=== PATIENT | male | born 1965 | race Two or more races ===

== ENCOUNTER 2019-06-25 15:47 | Inpatient (IN) | payer OTHER ==
[2019-06-25 16:58] VITALS: BMI 24.3
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
[2019-06-25] MEDS ORDERED: MENTHOL/PHENOL 1 EACH UD MM PRN (17:44)
[2019-06-25] MEDS ORDERED: MAGNESIUM HYDROX 2400MG/30ML ORAL SUSPENSION 30 ML CUP PO PRN (17:44)
[2019-06-25] MEDS ORDERED: guaiFENesin 200 MG/10 ML 10 ML UNIT-DOSE CUPS PO PRN (17:44)
[2019-06-25] MEDS ORDERED: ACETAMINOPHEN 325 MG TABLET (FP) PO PRN (17:44)
[2019-06-25] MEDS ORDERED: MAGNESIUM CITRATE 300 ML BOTTLE PO PRN (17:44)
[2019-06-25] MEDS ORDERED: IBUPROFEN 400 MG TABLET (FP) PO PRN (17:44)
[2019-06-25] MEDS ORDERED: LOPERAMIDE HCL 2 MG CAPSULE PO PRN (17:44)
[2019-06-25] MEDS ORDERED: P-EPHED 60MG/TRIPROLIDI 2.5MG TABLET PO PRN (17:44)
[2019-06-25] MEDS ORDERED: MAG HYDROX/AL HYDROX/SIMETH 30 ML UNIT-DOSE CUP PO PRN (17:44)
[2019-06-25] MEDS ORDERED: hydrOXYzine PAMOATE 50 MG CAPSULE (FP) PO PRN (17:44)
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
[2019-06-25] MEDS: metFORMIN HCL 500 MG TABLET (FP) PO SCH (19:08)
[2019-06-25] MEDS: THIAMINE HCL 100 MG TABLET (FP) PO SCH (21:20)
[2019-06-26] MEDS ORDERED: METHADONE HCL 10 MG TABLET PO SCH (07:00)
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
[2019-06-26] MEDS ORDERED: METHADONE HCL 5 MG TABLET ONE (07:11)
[2019-06-26] MEDS ORDERED: METHADONE HCL 10 MG TABLET ONE (07:12)
[2019-06-26] MEDS: METHADONE PO SCH (07:15)
[2019-06-26] MEDS: metFORMIN HCL 500 MG TABLET (FP) PO SCH ×2 (07:17→17:40)
--- NOTE | 2019-06-26 10:15 | PN ---
[facility] Progress Note Note: Pt is a new pt admitted to rehab from [facility] on 06.25.19 for RACQUEL-heroin,xanax and cocaine dependence and on Cameron Plasencia-MMTP with Methadone 25 mg po daily. Received last dose today on the unit after verification by nurse. Pt stated was discharged from [facility] yesterday for psych("i got paranoa, people follow me") and was referred here to rehab. Pt reports he was at [facility] for seven days. Pt reports was recently diagnosed with DM at [facility] and referred to primary care. Pt is alert o x 3. OOb ambulating with steady gait. Psych consult for hx of Schizo and Bipolar disorder. Pt reports he has a psych/medical providers at [place], [place] for primary care. Vital Signs - 24 hr 06/25/19 06/25/19 06/26/19 16:45 18:40 00:30 Temperature 97.8 F 98.0 F Pulse Rate 95 H 88 Respiratory 18 18 18 Rate Blood Pressure 115/82 111/75 06/26/19 06/26/19 03:30 07:01 Temperature 97.5 F L Pulse Rate 113 H Respiratory 18 18 Rate Blood Pressure 108/78 A/P New Pt D/w pt will monitor BGM while in rehab and intervene if needed. Pt will follow up with primary care providers at [facility] after discharge.
[2019-06-26] MEDS: PRENATAL VITAMINS W/ FOLIC ACID TABLET (FP) PO SCH (10:47)
[2019-06-26] MEDS: BENZTROPINE MESYLATE 0.5 MG PO SCH ×2 (10:47→21:37)
[2019-06-26] MEDS: MINERAL OIL/PETROLAT/WATER TOPICAL CREAM 113 GM JAR TP PRN (17:58)
[2019-06-26] MEDS: MELATONIN 5 MG TABLETS PO PRN (21:37)
[2019-06-26] MEDS: THIAMINE HCL 100 MG TABLET (FP) PO SCH (21:37)
[2019-06-27] MEDS ORDERED: METHADONE HCL 5 MG TABLET ONE (05:38)
[2019-06-27] MEDS ORDERED: METHADONE HCL 10 MG TABLET ONE (05:39)
[2019-06-27] MEDS: METHADONE PO SCH (05:58)
[2019-06-27] MEDS: PALIPERIDONE 9 MG PO SCH (06:01)
[2019-06-27] MEDS: metFORMIN HCL 500 MG TABLET (FP) PO SCH ×2 (07:07→16:55)
[2019-06-27] MEDS: PRENATAL VITAMINS W/ FOLIC ACID TABLET (FP) PO SCH (10:38)
[2019-06-27] MEDS: BENZTROPINE MESYLATE 0.5 MG PO SCH ×2 (10:38→21:21)
[2019-06-27 11:57] LABS: HEMATOCRIT 43.3 % (35.4-49); HEMOGLOBIN 14.3 GM/dL (11.7-16.9); MCH 28.4 pg (25.7-33.7); MEAN PLT VOLUME 8.9 fl (7.5-11.1); PLATELET COUNT 259 K/MM3 (134-434); RBC 5.03 M/mm3 (4.00-5.60); RDW 15.1 % (11.9-15.9); WHITE BLOOD COUNT 10.2 K/mm3 (4.0-10.0)
[2019-06-27 12:13] LABS: BILIRUBIN,TOTAL 0.4 mg/dL (0.2-1); BLOOD UREA NITROGEN 8.4 mg/dL (7-18); CALCIUM 9.3 mg/dL (8.5-10.1); CREATININE 0.7 mg/dL (0.55-1.3); POTASSIUM 4.1 mmol/L (3.5-5.1); TOT PROT 7.8 g/dl (6.4-8.2)
[2019-06-27 14:44] LABS: URINE APPEARANCE CLEAR; URINE BILIRUBIN NEGATIVE (NEGATIVE); URINE COLOR YELLOW; URINE GLUCOSE (UA) NEGATIVE (NEGATIVE); URINE KETONE NEGATIVE (NEGATIVE); URINE LEUK ESTERASE NEGATIVE (NEGATIVE); URINE NITRITE NEGATIVE (NEGATIVE); URINE PROTEIN NEGATIVE (NEGATIVE); URINE UROBILINOGEN 0.2 mg/dL (0.2-1.0)
[2019-06-27] MEDS: THIAMINE HCL 100 MG TABLET (FP) PO SCH (21:21)
[2019-06-27] MEDS: MINERAL OIL/PETROLAT/WATER TOPICAL CREAM 113 GM JAR TP PRN (22:40)
[2019-06-28] MEDS ORDERED: METHADONE HCL 5 MG TABLET ONE (05:49)
[2019-06-28] MEDS ORDERED: METHADONE HCL 10 MG TABLET ONE (05:50)
[2019-06-28] MEDS: PALIPERIDONE 9 MG PO SCH (06:30)
[2019-06-28] MEDS: METHADONE PO SCH (06:30)
[2019-06-28] MEDS: metFORMIN HCL 500 MG TABLET (FP) PO SCH ×2 (07:46→16:33)
[2019-06-28] MEDS: BENZTROPINE MESYLATE 0.5 MG PO SCH ×2 (10:42→21:17)
[2019-06-28] MEDS: PRENATAL VITAMINS W/ FOLIC ACID TABLET (FP) PO SCH (10:42)
[2019-06-28] MEDS: NICOTINE POLACRILEX 2 MG GUM BC PRN (16:35)
[2019-06-28] MEDS: THIAMINE HCL 100 MG TABLET (FP) PO SCH (21:17)
[2019-06-29] MEDS ORDERED: METHADONE HCL 5 MG TABLET ONE (05:53)
[2019-06-29] MEDS ORDERED: METHADONE HCL 10 MG TABLET ONE (05:54)
[2019-06-29] MEDS: METHADONE PO SCH (06:05)
[2019-06-29] MEDS: PALIPERIDONE 9 MG PO SCH (06:06)
[2019-06-29] MEDS: metFORMIN HCL 500 MG TABLET (FP) PO SCH ×2 (07:30→17:10)
[2019-06-29] MEDS: BENZTROPINE MESYLATE 0.5 MG PO SCH ×2 (10:29→21:38)
[2019-06-29] MEDS: PRENATAL VITAMINS W/ FOLIC ACID TABLET (FP) PO SCH (10:29)
[2019-06-29] MEDS: NICOTINE POLACRILEX 2 MG GUM BC PRN (10:34)
[2019-06-29] MEDS: THIAMINE HCL 100 MG TABLET (FP) PO SCH (21:38)
[2019-06-29] MEDS: MELATONIN 5 MG TABLETS PO PRN (21:38)
[2019-06-30] MEDS ORDERED: METHADONE HCL 5 MG TABLET ONE (06:16)
[2019-06-30] MEDS: METHADONE PO SCH (06:17)
[2019-06-30] MEDS ORDERED: METHADONE HCL 10 MG TABLET ONE (06:17)
[2019-06-30] MEDS: PALIPERIDONE 9 MG PO SCH (06:18)
[2019-06-30] MEDS: metFORMIN HCL 500 MG TABLET (FP) PO SCH ×2 (07:03→17:11)
[2019-06-30] MEDS: PRENATAL VITAMINS W/ FOLIC ACID TABLET (FP) PO SCH (10:15)
[2019-06-30] MEDS: BENZTROPINE MESYLATE 0.5 MG PO SCH ×2 (10:17→21:07)
[2019-06-30] MEDS: THIAMINE HCL 100 MG TABLET (FP) PO SCH (21:06)
[2019-06-30] MEDS: MELATONIN 5 MG TABLETS PO PRN (21:07)
[2019-07-01] MEDS ORDERED: METHADONE HCL 10 MG TABLET ONE (06:17)
[2019-07-01] MEDS ORDERED: METHADONE HCL 5 MG TABLET ONE (06:17)
[2019-07-01] MEDS: METHADONE PO SCH (06:20)
[2019-07-01] MEDS: PALIPERIDONE 9 MG PO SCH (06:21)
[2019-07-01] MEDS: metFORMIN HCL 500 MG TABLET (FP) PO SCH ×2 (07:35→17:04)
[2019-07-01] MEDS: PRENATAL VITAMINS W/ FOLIC ACID TABLET (FP) PO SCH (10:40)
[2019-07-01] MEDS: BENZTROPINE MESYLATE 0.5 MG PO SCH ×2 (10:40→21:13)
[2019-07-01] MEDS: MELATONIN 5 MG TABLETS PO PRN (21:13)
[2019-07-01] MEDS: THIAMINE HCL 100 MG TABLET (FP) PO SCH (21:13)
[2019-07-02] MEDS ORDERED: METHADONE HCL 5 MG TABLET ONE (05:42)
[2019-07-02] MEDS ORDERED: METHADONE HCL 10 MG TABLET ONE (05:42)
[2019-07-02] MEDS: METHADONE PO SCH (06:05)
[2019-07-02] MEDS: metFORMIN HCL 500 MG TABLET (FP) PO SCH ×2 (07:09→17:09)
[2019-07-02] MEDS: PALIPERIDONE 9 MG PO SCH (07:10)
[2019-07-02] MEDS: PRENATAL VITAMINS W/ FOLIC ACID TABLET (FP) PO SCH (11:00)
[2019-07-02] MEDS: BENZTROPINE MESYLATE 0.5 MG PO SCH ×2 (11:00→22:00)
[2019-07-02] MEDS: THIAMINE HCL 100 MG TABLET (FP) PO SCH (22:00)
[2019-07-03] MEDS ORDERED: METHADONE HCL 10 MG TABLET PO SCH (06:00)
[2019-07-03] MEDS ORDERED: METHADONE HCL 5 MG TABLET ONE (06:28)
[2019-07-03] MEDS ORDERED: METHADONE HCL 10 MG TABLET ONE (06:29)
[2019-07-03] MEDS: METHADONE 20 MG, METHADONE 5 MG PO SCH (06:30)
[2019-07-03] MEDS: PALIPERIDONE 9 MG PO SCH (06:30)
[2019-07-03] MEDS: metFORMIN HCL 500 MG TABLET (FP) PO SCH ×2 (07:42→17:15)
[2019-07-03] MEDS: PRENATAL VITAMINS W/ FOLIC ACID TABLET (FP) PO SCH (11:37)
[2019-07-03] MEDS: BENZTROPINE MESYLATE 0.5 MG PO SCH ×2 (11:37→21:56)
--- NOTE | 2019-07-03 12:24 | DS ---
[facility] Rehab Discharge Summary - [facility] Rehab Discharge Summary Admission Date: 06/25/19 Discharge Date: 07/04/19 - History Present History: Alcohol dependence, Cocaine dependence, MMTP Additional Comments: Pt is a 54 y/o male admitted to rehab and scheduled for discharge tomorrow 07/04. Pt has been referred to [facility] and [place], [place] for CD aftercare and primary care, respectively. Pertinent Past History: Type 2 DM Hep C-completed treatment 4 months ago per H/P Schizophrenia - Discharge Physical Exam Vital Signs: Vital Signs Temperature 97.2 F L 07/03/19 07:26 Pulse Rate 108 H 07/03/19 07:26 Respiratory Rate 18 07/03/19 07:26 Blood Pressure 104/69 07/03/19 07:26 O2 Sat by Pulse Oximetry (%) alert o x 3 nad oob ambulating with steady gait cardiac:s1 s2,rrr lungs:cta,dequan. abdomen:soft,flat,+bs,nt extremities/skin:no edema,Active ROM/ full weight bearing/skin intact;tatoos on lower legs. Pertinent Admission Physical Exam Findings: Laboratory Tests 06/25/19 06/26/19 06/26/19 19:06 06:02 10:30 WBC RBC Hgb Hct MCV MCH MCHC RDW Plt Count MPV Sodium Potassium Chloride Carbon Dioxide Anion Gap BUN Creatinine Est GFR (CKD-EPI)AfAm Est GFR (CKD-EPI)NonAf POC Glucometer 147 173 Random Glucose Calcium Total Bilirubin AST ALT Alkaline Phosphatase Total Protein Albumin Urine Color Yellow Urine Appearance Clear Urine pH 5.0 Ur Specific Wiggins 1.017 Urine Protein Negative Urine Glucose (UA) Negative Urine Ketones Negative Urine Blood Negative Urine Nitrite Negative Urine Bilirubin Negative Urine Urobilinogen 0.2 Ur Leukocyte Esterase Negative RPR Titer 06/26/19 06/27/19 06/27/19 16:13 05:58 08:00 WBC 10.2 H RBC 5.03 Hgb 14.3 Hct 43.3 MCV 86.0 MCH 28.4 MCHC 33.0 RDW 15.1 D Plt Count 259 D MPV 8.9 Sodium Potassium Chloride Carbon Dioxide Anion Gap BUN Creatinine Est GFR (CKD-EPI)AfAm Est GFR (CKD-EPI)NonAf POC Glucometer 93 107 Random Glucose Calcium Total Bilirubin AST ALT Alkaline Phosphatase Total Protein Albumin Urine Color Urine Appearance Urine pH Ur Specific Wiggins Urine Protein Urine Glucose (UA) Urine Ketones Urine Blood Urine Nitrite Urine Bilirubin Urine Urobilinogen Ur Leukocyte Esterase RPR Titer 06/27/19 06/27/19 06/27/19 08:00 08:00 16:54 WBC RBC Hgb Hct MCV MCH MCHC RDW Plt Count MPV Sodium 136 Potassium 4.1 Chloride 103 Carbon Dioxide 25 Anion Gap 8 BUN 8.4 Creatinine 0.7 Est GFR (CKD-EPI)AfAm 125.75 Est GFR (CKD-EPI)NonAf 108.50 POC Glucometer 141 Random Glucose 123 H Calcium 9.3 Total Bilirubin 0.4 AST 14 L ALT 17 Alkaline Phosphatase 79 Total Protein 7.8 Albumin 4.0 Urine Color Urine Appearance Urine pH Ur Specific Wiggins Urine Protein Urine Glucose (UA) Urine Ketones Urine Blood Urine Nitrite Urine Bilirubin Urine Urobilinogen Ur Leukocyte Esterase RPR Titer Nonreactive 06/28/19 06/28/19 06/29/19 06:28 16:32 06:03 WBC RBC Hgb Hct MCV MCH MCHC RDW Plt Count MPV Sodium Potassium Chloride Carbon Dioxide Anion Gap BUN Creatinine Est GFR (CKD-EPI)AfAm Est GFR (CKD-EPI)NonAf POC Glucometer 105 104 118 Random Glucose Calcium Total Bilirubin AST ALT Alkaline Phosphatase Total Protein Albumin Urine Color Urine Appearance Urine pH Ur Specific Wiggins Urine Protein Urine Glucose (UA) Urine Ketones Urine Blood Urine Nitrite Urine Bilirubin Urine Urobilinogen Ur Leukocyte Esterase RPR Titer 06/29/19 06/30/19 06/30/19 16:22 06:13 16:23 WBC RBC Hgb Hct MCV MCH MCHC RDW Plt Count MPV Sodium Potassium Chloride Carbon Dioxide Anion Gap BUN Creatinine Est GFR (CKD-EPI)AfAm Est GFR (CKD-EPI)NonAf POC Glucometer 125 103 133 Random Glucose Calcium Total Bilirubin AST ALT Alkaline Phosphatase Total Protein Albumin Urine Color Urine Appearance Urine pH Ur Specific Wiggins Urine Protein Urine Glucose (UA) Urine Ketones Urine Blood Urine Nitrite Urine Bilirubin Urine Urobilinogen Ur Leukocyte Esterase RPR Titer 07/01/19 07/01/19 07/02/19 06:19 16:36 06:02 WBC RBC Hgb Hct MCV MCH MCHC RDW Plt Count MPV Sodium Potassium Chloride Carbon Dioxide Anion Gap BUN Creatinine Est GFR (CKD-EPI)AfAm Est GFR (CKD-EPI)NonAf POC Glucometer 98 101 108 Random Glucose Calcium Total Bilirubin AST ALT Alkaline Phosphatase Total Protein Albumin Urine Color Urine Appearance Urine pH Ur Specific Wiggins Urine Protein Urine Glucose (UA) Urine Ketones Urine Blood Urine Nitrite Urine Bilirubin Urine Urobilinogen Ur Leukocyte Esterase RPR Titer 07/02/19 07/03/19 07/04/19 17:10 06:26 06:24 WBC RBC Hgb Hct MCV MCH MCHC RDW Plt Count MPV Sodium Potassium Chloride Carbon Dioxide Anion Gap BUN Creatinine Est GFR (CKD-EPI)AfAm Est GFR (CKD-EPI)NonAf POC Glucometer 98 84 94 Random Glucose Calcium Total Bilirubin AST ALT Alkaline Phosphatase Total Protein Albumin Urine Color Urine Appearance Urine pH Ur Specific Wiggins Urine Protein Urine Glucose (UA) Urine Ketones Urine Blood Urine Nitrite Urine Bilirubin Urine Urobilinogen Ur Leukocyte Esterase RPR Titer - Treatment Discharge Condition: Discharge condition good Hospital Course: Rehabilitated safely and responded well CD aftercare referral accepted - Medication Discharge Medications: Ambulatory Orders Benztropine Mesylate [Cogentin -] 0.5 mg PO BID #60 tablet 07/03/19 Metformin HCl [Glucophage] 500 mg PO BID #60 tablet 07/03/19 Paliperidone [Invega] 9 mg PO DAILY #30 tab.[id number] 07/03/19 - Medication-Assisted Treatment (MAT) Medication-Assisted Treatment (MAT): No - Discharge Instructions Diet, activity, other medical instructions: Diet:NCS Activity: oob ambulating with steady gait Other medical instructions:follow up with primary care provider at [facility] within 1 week after discharge. 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 insulin use: without half-way use (2) Nicotine dependence Current Visit: Yes Status: Chronic Qualifiers: Nicotine product type: cigarettes Substance use status: uncomplicated Qualified Code(s): F17.210 - Nicotine dependence, cigarettes, uncomplicated (3) Opioid dependence on agonist therapy Current Visit: Yes Status: Chronic (4) Alcohol dependence Current Visit: Yes Status: Chronic Qualifiers: Substance use status: uncomplicated Qualified Code(s): F10.20 - Alcohol dependence, uncomplicated (5) Cocaine dependence Current Visit: Yes Status: Chronic (6) Hx of hepatitis C Current Visit: Yes Status: Resolved - Follow-up Referral Minutes to complete discharge: 20 - AMA Did Patient Leave Against Medical Advice: No Additional Comments: Rx for metformin 500 mg po bid electronically sent to [facility] 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
--- NOTE | 2019-07-03 13:27 | PN ---
[facility] Progress Note Note: Patient is scheduled for discharge tomorrow. Scripts for 30 days supply of medications(Invega 9 mg/day, Cogentin 0.5 mg/bid) will be electronically transmitted to [facility] at [address] [place] [address]
[2019-07-03] MEDS: THIAMINE HCL 100 MG TABLET (FP) PO SCH (21:57)
[2019-07-04] MEDS ORDERED: METHADONE HCL 5 MG TABLET ONE (06:22)
[2019-07-04] MEDS ORDERED: METHADONE HCL 10 MG TABLET ONE (06:22)
[2019-07-04] MEDS: PALIPERIDONE 9 MG PO SCH (06:26)
[2019-07-04] MEDS: METHADONE 20 MG, METHADONE 5 MG PO SCH (06:26)
[2019-07-04 07:15] VITALS: BP 108/75; PULSE 75; TEMP 97.4
--- NOTE | 2019-07-04 09:17 | PN ---
S Progress Note Note: Pt seen this morning prior to discharge. Pt states he is fine. Has outpt care set up. Will be going to nursing home. Pt alert and oriented, ambulatory PE- refused PE- walked out of the room f/u as scheduled
[2019-07-04] MEDS: PRENATAL VITAMINS W/ FOLIC ACID TABLET (FP) PO SCH (10:04)
[2019-07-04] MEDS: metFORMIN HCL 500 MG TABLET (FP) PO SCH (10:05)
[2019-07-04] MEDS: BENZTROPINE MESYLATE 0.5 MG PO SCH (10:05)
== END 2019-07-04 10:10 | disposition other institution (70) | DRG 772 ==
LOC: YASAS 15:47 → Y5N 17:52
PROVIDERS: ADMIT Neuromusculoskeletal Medicine & OMM; ATTEND Neuromusculoskeletal Medicine & OMM
PROC: HZ42ZZZ Group Counseling for Substance Abuse Treatment, Cognitive-Behavioral (ICD-10-PCS; principal; 2019-06-25)
DX: F10.20 Alcohol dependence, uncomplicated (principal); F11.20 Opioid dependence, uncomplicated; F13.20 Sedative, hypnotic or anxiolytic dependence, uncomplicated; F14.20 Cocaine dependence, uncomplicated; F17.210 Nicotine dependence, cigarettes, uncomplicated; F19.282 Other psychoactive substance dependence with psychoactive substance-induced sleep disorder; F19.24 Other psychoactive substance dependence with psychoactive substance-induced mood disorder; F25.9 Schizoaffective disorder, unspecified; F31.9 Bipolar disorder, unspecified; E11.9 Type 2 diabetes mellitus without complications; Z79.84 Long term (current) use of oral hypoglycemic drugs; Z86.19 Personal history of other infectious and parasitic diseases; Z87.828 Personal history of other (healed) physical injury and trauma; Z88.8 Allergy status to other drugs, medicaments and biological substances; Z91.013 Allergy to seafood
CPT/HCPCS: 36415; 80053; 81003; 82962; 85027; 86593

== ENCOUNTER 2019-08-22 11:16 | Inpatient (IN) | payer OTHER ==
[2019-08-22 13:12] VITALS: BMI 25.0
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
[2019-08-22] MEDS ORDERED: MAG HYDROX/AL HYDROX/SIMETH 30 ML UNIT-DOSE CUP PO PRN (16:37)
[2019-08-22] MEDS ORDERED: MAGNESIUM HYDROX 2400MG/30ML ORAL SUSPENSION 30 ML CUP PO PRN (16:37)
[2019-08-22] MEDS ORDERED: IBUPROFEN 400 MG TABLET (FP) PO PRN (16:37)
[2019-08-22] MEDS ORDERED: ACETAMINOPHEN 325 MG TABLET (FP) PO PRN ×2 (16:37)
[2019-08-22] MEDS ORDERED: MENTHOL/PHENOL 1 EACH UD MM PRN (16:37)
[2019-08-22] MEDS ORDERED: BISMUTH SUBSALICYLATE 524 MG/30 ML UD PO PRN (16:37)
[2019-08-22] MEDS ORDERED: MAGNESIUM CITRATE 300 ML BOTTLE PO PRN (16:37)
[2019-08-22] MEDS ORDERED: chlordiazePOXIDE HCL 10 MG CAPSULE PO PRN (16:41)
[2019-08-22] MEDS ORDERED: chlordiazePOXIDE HCL 25 MG CAPSULE PO ONE (17:45)
[2019-08-22] MEDS: chlordiazePOXIDE HCL 25 MG CAPSULE PO SCH (21:10)
[2019-08-22] MEDS: THIAMINE HCL 100 MG TABLET (FP) PO SCH (21:10)
[2019-08-23] MEDS: hydrOXYzine PAMOATE 25 MG CAPSULE (FP) PO PRN ×3 (01:32→17:04)
[2019-08-23] MEDS: MELATONIN 5 MG TABLETS PO PRN (01:32)
[2019-08-23] MEDS: chlordiazePOXIDE HCL 25 MG CAPSULE PO SCH ×3 (05:37→21:28)
[2019-08-23] MEDS: INSULIN SLIDING SCALE (NOVOLOG) 1 VIAL SQ SCH ×2 (07:26→17:04)
[2019-08-23] MEDS ORDERED: METHADONE HCL 10 MG TABLET PO ONE (08:42)
[2019-08-23] MEDS ORDERED: METHADONE 20 MG, METHADONE 5 MG PO ONE (08:50)
[2019-08-23] MEDS ORDERED: METHADONE HCL 10 MG TABLET ONE ×3 (09:04→09:26)
[2019-08-23] MEDS ORDERED: METHADONE HCL 5 MG TABLET ONE (09:26)
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
[2019-08-23] MEDS: PRENATAL VITAMINS W/ FOLIC ACID TABLET (FP) PO SCH (10:13)
--- NOTE | 2019-08-23 11:25 | PN ---
S CIWA - CIWA Score Nausea/Vomitin-No Nausea/No Vomiting Muscle Tremors: 3 Anxiety: 2 Agitation: 3 Paroxysmal Sweats: 2 Orientation: 0-Oriented Tacttile Disturbances: 0-None Auditory Disturbances: 0-None Visual Disturbances: 0-None Headache: 0-None Present CIWA-Ar Total Score: 10 BHS Progress Note (SOAP) Subjective: sweats shakes body aches interrupted sleep restless Objective: 08/23/19 11:24 Vital Signs Temperature 97.7 F 08/23/19 07:40 Pulse Rate 70 08/23/19 07:40 Respiratory Rate 18 08/23/19 07:40 Blood Pressure 129/77 08/23/19 07:40 O2 Sat by Pulse Oximetry (%) Laboratory Tests 08/23/19 05:36 POC Glucometer 131 aaox3 ambulating no acute distress Assessment: 08/23/19 11:25 withdrawals Plan: continue detox increase fluids
[2019-08-23 11:35] LABS: HEMOGLOBIN 14.6 GM/dL (11.7-16.9); MCHC 33.3 g/dl (32.0-35.9); MEAN CELL VOLUME 87.2 fl (80-96); PLATELET COUNT 247 K/MM3 (134-434); RBC 5.04 M/mm3 (4.00-5.60); RDW 15.1 % (11.9-15.9); WHITE BLOOD COUNT 13.2 K/mm3 (4.0-10.0)
[2019-08-23 11:39] LABS: ALBUMIN 3.9 g/dl (3.4-5.0); BILIRUBIN,TOTAL 0.7 mg/dL (0.2-1); CALCIUM 9.2 mg/dL (8.5-10.1); CREATININE 0.9 mg/dL (0.55-1.3); POTASSIUM 3.7 mmol/L (3.5-5.1); TOT PROT 7.4 g/dl (6.4-8.2)
[2019-08-23] MEDS: THIAMINE HCL 100 MG TABLET (FP) PO SCH (21:28)
[2019-08-23] MEDS: QUEtiapine FUMARATE 100 MG TABLET (FP) PO SCH (21:28)
[2019-08-24] MEDS: hydrOXYzine PAMOATE 25 MG CAPSULE (FP) PO PRN (01:00)
[2019-08-24] MEDS ORDERED: METHADONE HCL 10 MG TABLET ONE ×3 (04:04→05:37)
[2019-08-24] MEDS ORDERED: METHADONE HCL 5 MG TABLET ONE (05:37)
[2019-08-24] MEDS: METHADONE 20 MG, METHADONE 5 MG PO SCH (05:45)
[2019-08-24] MEDS: chlordiazePOXIDE 5 MG CAPSULE PO SCH ×3 (05:45→21:35)
[2019-08-24] MEDS ORDERED: METHADONE HCL 40 MG DISPERSABLE TABLET PO SCH (06:00)
[2019-08-24] MEDS: INSULIN SLIDING SCALE (NOVOLOG) 1 VIAL SQ SCH ×2 (08:12→17:10)
[2019-08-24] MEDS: PRENATAL VITAMINS W/ FOLIC ACID TABLET (FP) PO SCH (09:36)
--- NOTE | 2019-08-24 12:00 | PN ---
S CIWA - CIWA Score Nausea/Vomitin-No Nausea/No Vomiting Muscle Tremors: 2 Anxiety: 2 Agitation: 2 Paroxysmal Sweats: 1-Minimal Palms Moist Orientation: 0-Oriented Tacttile Disturbances: 0-None Auditory Disturbances: 0-None Visual Disturbances: 0-None Headache: 0-None Present CIWA-Ar Total Score: 7 BHS Progress Note (SOAP) Subjective: feeling better Objective: 08/24/19 11:59 Vital Signs Temperature 97.3 F L 08/24/19 09:36 Pulse Rate 84 08/24/19 09:36 Respiratory Rate 16 08/24/19 09:36 Blood Pressure 126/81 08/24/19 09:36 O2 Sat by Pulse Oximetry (%) aaox3 ambulating no acute distress Assessment: 08/24/19 12:00 withdrawal sx Plan: continue detox d/c in am
[2019-08-24] MEDS: MELATONIN 5 MG TABLETS PO PRN (21:36)
[2019-08-24] MEDS: THIAMINE HCL 100 MG TABLET (FP) PO SCH (21:36)
[2019-08-24] MEDS: QUEtiapine FUMARATE 100 MG TABLET (FP) PO SCH (21:38)
[2019-08-25] MEDS ORDERED: chlordiazePOXIDE HCL 10 MG CAPSULE PO PRN
[2019-08-25] MEDS ORDERED: METHADONE HCL 5 MG TABLET ONE (04:14)
[2019-08-25] MEDS ORDERED: METHADONE HCL 10 MG TABLET ONE (04:14)
[2019-08-25] MEDS: METHADONE 20 MG, METHADONE 5 MG PO SCH (05:57)
[2019-08-25] MEDS: chlordiazePOXIDE HCL 10 MG CAPSULE PO SCH ×3 (05:57→22:26)
[2019-08-25] MEDS: INSULIN SLIDING SCALE (NOVOLOG) 1 VIAL SQ SCH ×2 (08:10→17:04)
[2019-08-25] MEDS: PRENATAL VITAMINS W/ FOLIC ACID TABLET (FP) PO SCH (10:16)
--- NOTE | 2019-08-25 16:24 | PN ---
S CIWA - CIWA Score Nausea/Vomitin-No Nausea/No Vomiting Muscle Tremors: None Anxiety: 3 Agitation: 2 Paroxysmal Sweats: No Perspiration Orientation: 2-Disoriented Date<2 days Tacttile Disturbances: 0-None Auditory Disturbances: 0-None Visual Disturbances: 2-Mild Sensitivity Headache: 0-None Present CIWA-Ar Total Score: 9 BHS Progress Note (SOAP) Subjective: Anxious, Restless. Objective: PATIENT A & O X 2 (UNCERTAIN ABOUT CURRENT DAY/ DATE). PATIENT OBSERVED AMBULATING ON DETOX UNIT UNASSISTED. IN NO ACUTE DISTRESS. 08/25/19 16:22 Vital Signs Temperature 97.7 F 08/25/19 15:30 Pulse Rate 67 08/25/19 15:30 Respiratory Rate 18 08/25/19 15:30 Blood Pressure 119/73 08/25/19 15:30 O2 Sat by Pulse Oximetry (%) Laboratory Tests 08/23/19 08/23/19 08/23/19 05:36 08:20 08:20 WBC 13.2 H RBC 5.04 Hgb 14.6 Hct 44.0 MCV 87.2 MCH 29.0 MCHC 33.3 RDW 15.1 Plt Count 247 MPV 9.0 Sodium 137 Potassium 3.7 Chloride 103 Carbon Dioxide 29 Anion Gap 5 L BUN 16.0 Creatinine 0.9 Est GFR (CKD-EPI)AfAm 113.41 Est GFR (CKD-EPI)NonAf 97.85 POC Glucometer 131 Random Glucose 131 H Calcium 9.2 Total Bilirubin 0.7 AST 13 L ALT 20 Alkaline Phosphatase 79 Total Protein 7.4 Albumin 3.9 08/23/19 08/24/19 08/24/19 16:51 05:44 16:31 WBC RBC Hgb Hct MCV MCH MCHC RDW Plt Count MPV Sodium Potassium Chloride Carbon Dioxide Anion Gap BUN Creatinine Est GFR (CKD-EPI)AfAm Est GFR (CKD-EPI)NonAf POC Glucometer 115 106 127 Random Glucose Calcium Total Bilirubin AST ALT Alkaline Phosphatase Total Protein Albumin 08/25/19 05:58 WBC RBC Hgb Hct MCV MCH MCHC RDW Plt Count MPV Sodium Potassium Chloride Carbon Dioxide Anion Gap BUN Creatinine Est GFR (CKD-EPI)AfAm Est GFR (CKD-EPI)NonAf POC Glucometer 132 Random Glucose Calcium Total Bilirubin AST ALT Alkaline Phosphatase Total Protein Albumin LABS NOTED. ELEVATED WBC LEVEL NOTED. TRACK PICKERING PRESENT ON RIGHT ARM; HOWEVER, NO SWELLING , ERYTHEMA OR DISCHARGE NOTED AT AFFECTED SITES. PATIENT DENIES ANY UNUSUAL URINARY COMPLAINTS (BURNING, PAIN, FREQUENCY, URGENCY , HESITANCY, VISUALIZATION OF BLOOD IN URINE). PATIENT DENIES CHEST PAIN AND SOB. 08/25/19 16:24 Assessment: 08/25/19 16:23 WITHDRAWAL SYMPTOMS. Plan: CONTINUE DETOX. INCREASE DAILY ORAL WATER INTAKE. UA ORDERED TO R/O UTI.
[2019-08-25] MEDS: QUEtiapine FUMARATE 100 MG TABLET (FP) PO SCH (22:26)
[2019-08-25] MEDS: THIAMINE HCL 100 MG TABLET (FP) PO SCH (22:26)
[2019-08-26] MEDS ORDERED: chlordiazePOXIDE HCL 10 MG CAPSULE PO ONE (05:00)
[2019-08-26] MEDS ORDERED: METHADONE HCL 10 MG TABLET ONE (05:15)
[2019-08-26] MEDS ORDERED: METHADONE HCL 5 MG TABLET ONE (05:15)
[2019-08-26] MEDS: METHADONE 20 MG, METHADONE 5 MG PO SCH (05:43)
[2019-08-26] MEDS: INSULIN SLIDING SCALE (NOVOLOG) 1 VIAL SQ SCH ×2 (06:27→16:51)
--- NOTE | 2019-08-26 09:13 | DS ---
[facility] Detox Discharge Summary Admission Date: 08/22/19 Discharge Date: 08/26/19 - History Present History: Alcohol Dependence, Sedative Dependence, MMTP - Physical Exam Results Vital Signs: Vital Signs Temperature 97.2 F L 08/26/19 07:21 Pulse Rate 84 08/26/19 07:21 Respiratory Rate 18 08/26/19 07:21 Blood Pressure 115/75 08/26/19 07:21 O2 Sat by Pulse Oximetry (%) Pertinent Admission Physical Exam Findings: Vital Signs Temperature 97.2 F L 08/26/19 07:21 Pulse Rate 84 08/26/19 07:21 Respiratory Rate 18 08/26/19 07:21 Blood Pressure 115/75 08/26/19 07:21 O2 Sat by Pulse Oximetry (%) Laboratory Tests 08/23/19 08/23/19 08/23/19 05:36 08:20 08:20 WBC 13.2 H RBC 5.04 Hgb 14.6 Hct 44.0 MCV 87.2 MCH 29.0 MCHC 33.3 RDW 15.1 Plt Count 247 MPV 9.0 Sodium 137 Potassium 3.7 Chloride 103 Carbon Dioxide 29 Anion Gap 5 L BUN 16.0 Creatinine 0.9 Est GFR (CKD-EPI)AfAm 113.41 Est GFR (CKD-EPI)NonAf 97.85 POC Glucometer 131 Random Glucose 131 H Calcium 9.2 Total Bilirubin 0.7 AST 13 L ALT 20 Alkaline Phosphatase 79 Total Protein 7.4 Albumin 3.9 08/23/19 08/24/19 08/24/19 16:51 05:44 16:31 WBC RBC Hgb Hct MCV MCH MCHC RDW Plt Count MPV Sodium Potassium Chloride Carbon Dioxide Anion Gap BUN Creatinine Est GFR (CKD-EPI)AfAm Est GFR (CKD-EPI)NonAf POC Glucometer 115 106 127 Random Glucose Calcium Total Bilirubin AST ALT Alkaline Phosphatase Total Protein Albumin 08/25/19 08/25/19 08/26/19 05:58 16:22 06:15 WBC RBC Hgb Hct MCV MCH MCHC RDW Plt Count MPV Sodium Potassium Chloride Carbon Dioxide Anion Gap BUN Creatinine Est GFR (CKD-EPI)AfAm Est GFR (CKD-EPI)NonAf POC Glucometer 132 311 138 Random Glucose Calcium Total Bilirubin AST ALT Alkaline Phosphatase Total Protein Albumin aaox3 ambulating no acute distress - Treatment Hospital Course: Detox Protocol Followed, Detoxed Safely, Responded well, Discharged Condition Good, Rehab Referral Accepted Patient has Accepted a Rehab Referral to: referral provided - Medication Discharge Medications: Ambulatory Orders Quetiapine Fumarate [Seroquel -] 100 mg PO DAILY 08/22/19 - Diagnosis (1) Alcohol dependence with withdrawal, uncomplicated Current Visit: Yes Status: Acute (2) Nicotine dependence Current Visit: Yes Status: Chronic Qualifiers: Nicotine product type: cigarettes Substance use status: uncomplicated Qualified Code(s): F17.210 - Nicotine dependence, cigarettes, uncomplicated (3) Opioid dependence on agonist therapy Current Visit: Yes Status: Chronic (4) Sedative, hypnotic or anxiolytic dependence, uncomplicated Current Visit: Yes Status: Chronic (5) Cocaine abuse Current Visit: No Status: Acute (6) Opioid dependence with withdrawal Current Visit: Yes Status: Chronic (7) Sedative hypnotic or anxiolytic dependence Current Visit: No Status: Acute (8) Substance induced mood disorder Current Visit: No Status: Acute (9) Substance-induced sleep disorder Current Visit: No Status: Acute (10) Cocaine abuse Current Visit: No Status: Chronic (11) Cocaine dependence Current Visit: Yes Status: Chronic Qualifiers: Substance use status: uncomplicated Qualified Code(s): F14.20 - Cocaine dependence, uncomplicated (12) DMII (diabetes mellitus, type 2) Current Visit: No Status: Chronic Qualifiers: 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
--- NOTE | 2019-08-26 09:29 | PN ---
S Progress Note Note: pt will stay until tomorrow because tomorrow is a holiday (MLK) and his mmtp program is closed. pt will need to stay so he can be medicated and be d/c in am and be reinstated to his MMTP in am.
[2019-08-26] MEDS: PRENATAL VITAMINS W/ FOLIC ACID TABLET (FP) PO SCH (10:19)
[2019-08-26 11:52] LABS: EPI CELLS 0.9 /HPF (0-5/HPF); HYALINE CASTS 10 /lpf (0-8); URINE APPEARANCE CLEAR; URINE BACTERIA 50.2 /hpf (NEGATIVE); URINE BILIRUBIN NEGATIVE (NEGATIVE); URINE COLOR YELLOW; URINE GLUCOSE (UA) NEGATIVE (NEGATIVE); URINE KETONE NEGATIVE (NEGATIVE); URINE LEUK ESTERASE NEGATIVE (NEGATIVE); URINE NITRITE NEGATIVE (NEGATIVE); URINE PROTEIN 1+ (NEGATIVE); URINE RBC 7 /hpf (0-4); URINE UROBILINOGEN 0.2 mg/dL (0.2-1.0); URINE WBC 64 /hpf (0-5)
[2019-08-26] MEDS: QUEtiapine FUMARATE 100 MG TABLET (FP) PO SCH (22:47)
[2019-08-26] MEDS: THIAMINE HCL 100 MG TABLET (FP) PO SCH (22:47)
[2019-08-27] MEDS ORDERED: METHADONE HCL 10 MG TABLET ONE (04:02)
[2019-08-27] MEDS ORDERED: METHADONE HCL 5 MG TABLET ONE (04:04)
[2019-08-27] MEDS: METHADONE 20 MG, METHADONE 5 MG PO SCH (05:59)
[2019-08-27 06:56] VITALS: BP 103/72; PULSE 72; TEMP 97.9
[2019-08-27] MEDS: INSULIN SLIDING SCALE (NOVOLOG) 1 VIAL SQ SCH (08:27)
--- NOTE | 2019-08-27 09:13 | DS ---
[facility] Detox Discharge Summary Admission Date: 08/22/19 Discharge Date: 08/27/19 - History Present History: Alcohol Dependence, Cannabis Dependence, Cocaine Dependence, Opioid Dependence, MMTP - Physical Exam Results Vital Signs: Vital Signs Temperature 97.9 F 08/27/19 06:55 Pulse Rate 72 08/27/19 06:55 Respiratory Rate 18 08/27/19 06:55 Blood Pressure 103/72 08/27/19 06:55 O2 Sat by Pulse Oximetry (%) Pertinent Admission Physical Exam Findings: Vital Signs Temperature 97.9 F 08/27/19 06:55 Pulse Rate 72 08/27/19 06:55 Respiratory Rate 18 08/27/19 06:55 Blood Pressure 103/72 08/27/19 06:55 O2 Sat by Pulse Oximetry (%) Laboratory Tests 08/23/19 08/23/19 08/23/19 05:36 08:20 08:20 WBC 13.2 H RBC 5.04 Hgb 14.6 Hct 44.0 MCV 87.2 MCH 29.0 MCHC 33.3 RDW 15.1 Plt Count 247 MPV 9.0 Sodium 137 Potassium 3.7 Chloride 103 Carbon Dioxide 29 Anion Gap 5 L BUN 16.0 Creatinine 0.9 Est GFR (CKD-EPI)AfAm 113.41 Est GFR (CKD-EPI)NonAf 97.85 POC Glucometer 131 Random Glucose 131 H Calcium 9.2 Total Bilirubin 0.7 AST 13 L ALT 20 Alkaline Phosphatase 79 Total Protein 7.4 Albumin 3.9 Urine Color Urine Appearance Urine pH Ur Specific [place] Urine Protein Urine Glucose (UA) Urine Ketones Urine Blood Urine Nitrite Urine Bilirubin Urine Urobilinogen Ur Leukocyte Esterase Urine WBC (Auto) Urine RBC (Auto) Urine Casts (Auto) U Epithel Cells (Auto) Urine Bacteria (Auto) 08/23/19 08/24/19 08/24/19 16:51 05:44 16:31 WBC RBC Hgb Hct MCV MCH MCHC RDW Plt Count MPV Sodium Potassium Chloride Carbon Dioxide Anion Gap BUN Creatinine Est GFR (CKD-EPI)AfAm Est GFR (CKD-EPI)NonAf POC Glucometer 115 106 127 Random Glucose Calcium Total Bilirubin AST ALT Alkaline Phosphatase Total Protein Albumin Urine Color Urine Appearance Urine pH Ur Specific [place] Urine Protein Urine Glucose (UA) Urine Ketones Urine Blood Urine Nitrite Urine Bilirubin Urine Urobilinogen Ur Leukocyte Esterase Urine WBC (Auto) Urine RBC (Auto) Urine Casts (Auto) U Epithel Cells (Auto) Urine Bacteria (Auto) 08/25/19 08/25/19 08/26/19 05:58 16:22 06:15 WBC RBC Hgb Hct MCV MCH MCHC RDW Plt Count MPV Sodium Potassium Chloride Carbon Dioxide Anion Gap BUN Creatinine Est GFR (CKD-EPI)AfAm Est GFR (CKD-EPI)NonAf POC Glucometer 132 311 138 Random Glucose Calcium Total Bilirubin AST ALT Alkaline Phosphatase Total Protein Albumin Urine Color Urine Appearance Urine pH Ur Specific [place] Urine Protein Urine Glucose (UA) Urine Ketones Urine Blood Urine Nitrite Urine Bilirubin Urine Urobilinogen Ur Leukocyte Esterase Urine WBC (Auto) Urine RBC (Auto) Urine Casts (Auto) U Epithel Cells (Auto) Urine Bacteria (Auto) 08/26/19 08/26/19 08/27/19 07:30 16:27 06:01 WBC RBC Hgb Hct MCV MCH MCHC RDW Plt Count MPV Sodium Potassium Chloride Carbon Dioxide Anion Gap BUN Creatinine Est GFR (CKD-EPI)AfAm Est GFR (CKD-EPI)NonAf POC Glucometer 208 113 Random Glucose Calcium Total Bilirubin AST ALT Alkaline Phosphatase Total Protein Albumin Urine Color Yellow Urine Appearance Clear Urine pH 5.0 Ur Specific [place] 1.012 Urine Protein 1+ H Urine Glucose (UA) Negative Urine Ketones Negative Urine Blood Negative Urine Nitrite Negative Urine Bilirubin Negative Urine Urobilinogen 0.2 Ur Leukocyte Esterase Negative Urine WBC (Auto) 64 Urine RBC (Auto) 7 Urine Casts (Auto) 10 U Epithel Cells (Auto) 0.9 Urine Bacteria (Auto) 50.2 aaox3 ambulating no acute distress - Treatment Hospital Course: Detox Protocol Followed, Detoxed Safely, Responded well, Discharged Condition Good, Rehab Referral Accepted Patient has Accepted a Rehab Referral to: referral provided - Medication Discharge Medications: Ambulatory Orders Quetiapine Fumarate [Seroquel -] 100 mg PO DAILY 08/22/19 - Diagnosis (1) Alcohol dependence with withdrawal, uncomplicated Current Visit: Yes Status: Chronic (2) Nicotine dependence Current Visit: Yes Status: Chronic Qualifiers: Nicotine product type: cigarettes Substance use status: uncomplicated Qualified Code(s): F17.210 - Nicotine dependence, cigarettes, uncomplicated (3) Opioid dependence on agonist therapy Current Visit: Yes Status: Chronic (4) Sedative, hypnotic or anxiolytic dependence, uncomplicated Current Visit: Yes Status: Chronic (5) Opioid dependence with withdrawal Current Visit: Yes Status: Chronic (6) Sedative hypnotic or anxiolytic dependence Current Visit: Yes Status: Chronic (7) Substance induced mood disorder Current Visit: No Status: Acute (8) Substance-induced sleep disorder Current Visit: No Status: Acute (9) Cocaine dependence Current Visit: Yes Status: Chronic Qualifiers: Substance use status: uncomplicated Qualified Code(s): F14.20 - Cocaine dependence, uncomplicated (10) DMII (diabetes mellitus, type 2) Current Visit: No Status: Chronic Qualifiers: Diabetes mellitus fci insulin use: without fci use (11) Schizoaffective Disorder Current Visit: No Status: Chronic (12) Hx of hepatitis C Current Visit: No Status: Chronic - AMA Did Patient Leave Against Medical Advice: No
[2019-08-27] MEDS: PRENATAL VITAMINS W/ FOLIC ACID TABLET (FP) PO SCH (10:00)
== END 2019-08-27 10:25 | disposition home or self-care (01) | DRG 773 ==
LOC: YASAS 11:16 → Y6N 17:10
PROVIDERS: ADMIT Allergy & Immunology; ATTEND Allergy & Immunology
PROC: HZ2ZZZZ Detoxification Services for Substance Abuse Treatment (ICD-10-PCS; principal; 2019-08-22)
DX: F11.23 Opioid dependence with withdrawal (principal); F10.230 Alcohol dependence with withdrawal, uncomplicated; F13.230 Sedative, hypnotic or anxiolytic dependence with withdrawal, uncomplicated; F14.20 Cocaine dependence, uncomplicated; F17.210 Nicotine dependence, cigarettes, uncomplicated; F19.24 Other psychoactive substance dependence with psychoactive substance-induced mood disorder; F19.282 Other psychoactive substance dependence with psychoactive substance-induced sleep disorder; F25.9 Schizoaffective disorder, unspecified; F31.9 Bipolar disorder, unspecified; E11.9 Type 2 diabetes mellitus without complications; D72.829 Elevated white blood cell count, unspecified; L90.5 Scar conditions and fibrosis of skin; Z79.84 Long term (current) use of oral hypoglycemic drugs; Z86.19 Personal history of other infectious and parasitic diseases; Z91.013 Allergy to seafood; Z88.8 Allergy status to other drugs, medicaments and biological substances; Z56.0 Unemployment, unspecified
CPT/HCPCS: 36415; 80053; 81003; 82962; 85027

== ENCOUNTER 2019-10-09 16:53 | Inpatient (IN) | payer OTHER ==
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
--- NOTE | 2019-10-09 17:50 | BHS.RME ---
Substance Use & Tx History - Last Treatment Where was last treatment: Detox COWS - Scale Resting Pulse: 1= [place] 81-100 Sweatin=Flushed/Facial Moisture Restless Observation: 0= Sits Still Pupil Size: 1= Pupils >than Normal Bone or Joint Aches: 2= Severe Diffuse Aches Runny Nose/ Eye Tearin= Nasal Congestion GI Upset > 30mins: 3= Vomiting/Diarrhea (vomitin g x 2, diarrhea x 4) Tremor Observation: 2= Slight Tremor Visible Yawning Observation: 1= 1-2x During Session Anxiety or Irritability: 2=Irritable/Anxious Goose Flesh Skin: 3=Piloerection COWS Score: 18 CIWA Nausea/Vomitin (vomiti ng x 2) Muscle Tremors: 4-Moderate,w/Arms Extend Anxiety: 4-Mod. Anxious/Guarded Agitation: 2 Paroxysmal Sweats: 3 Orientation: 0-Oriented Tacttile Disturbances: 0-None Auditory Disturbances: 0-None Visual Disturbances: 0-None Headache: 2-Mild CIWA-Ar Total Score: 18
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
[2019-10-09] MEDS ORDERED: ACETAMINOPHEN 325 MG TABLET (FP) PO PRN ×2 (18:09)
[2019-10-09] MEDS ORDERED: chlordiazePOXIDE HCL 25 MG CAPSULE PO PRN (18:09)
[2019-10-09] MEDS ORDERED: MENTHOL/PHENOL 1 EACH UD MM PRN (18:09)
[2019-10-09] MEDS ORDERED: MAG HYDROX/AL HYDROX/SIMETH 30 ML UNIT-DOSE CUP PO PRN (18:09)
[2019-10-09] MEDS ORDERED: METHOCARBAMOL 500 MG TABLET PO PRN (18:09)
[2019-10-09] MEDS ORDERED: MAGNESIUM HYDROX 2400MG/30ML ORAL SUSPENSION 30 ML CUP PO PRN (18:09)
[2019-10-09] MEDS ORDERED: MAGNESIUM CITRATE 300 ML BOTTLE PO PRN (18:09)
[2019-10-09] MEDS ORDERED: IBUPROFEN 400 MG TABLET (FP) PO PRN (18:09)
[2019-10-09] MEDS ORDERED: NICOTINE POLACRILEX 2 MG GUM BUC PRN (18:09)
[2019-10-09] MEDS ORDERED: cloNIDine HCL 0.1 MG TABLET PO PRN (18:09)
[2019-10-09] MEDS ORDERED: BISMUTH SUBSALICYLATE 524 MG/30 ML UD PO PRN (18:09)
[2019-10-09 18:34] VITALS: BMI 24.9
[2019-10-09] MEDS ORDERED: ONDANSETRON *ODT* 4 MG TABLET SL ONE (19:00)
[2019-10-09] MEDS ORDERED: METHADONE HCL 10 MG TABLET (FOR DETOX USE ONLY) PO ONE (19:00)
[2019-10-09] MEDS: hydrOXYzine PAMOATE 25 MG CAPSULE (FP) PO SCH (22:20)
[2019-10-09] MEDS: THIAMINE HCL 100 MG TABLET (FP) PO SCH (22:20)
[2019-10-09] MEDS: MELATONIN 5 MG TABLETS PO SCH (22:21)
[2019-10-09] MEDS: chlordiazePOXIDE HCL 25 MG CAPSULE PO SCH (22:21)
--- NOTE | 2019-10-09 22:38 | PN ---
Jose Progress Note Note: Patient was evaluated in room . He reports that that he accidentally closed the door and his left handwas hurt. He has a superficial laceration to the left hand middle finger. No swelling noted. Patient denies pain or discomfort. Minimal bleeding noted Vital Signs Temperature 98.9 F 10/09/19 18:19 Pulse Rate 90 10/09/19 18:19 Respiratory Rate 20 10/09/19 18:19 Blood Pressure 117/78 10/09/19 18:19 O2 Sat by Pulse Oximetry (%) Action: Apply bacitracin and band aid as needed Keep area clean and dry Tylenol 650mg tablet oral ordered
[2019-10-10] MEDS: hydrOXYzine PAMOATE 25 MG CAPSULE (FP) PO SCH ×3 (06:36→13:53)
[2019-10-10] MEDS: chlordiazePOXIDE HCL 25 MG CAPSULE PO SCH ×4 (06:36→22:25)
--- NOTE | 2019-10-10 08:41 | EKG ---
Test Reason : Blood Pressure : / mmHG Vent. Rate : 065 BPM Atrial Rate : 065 BPM P-R Int : 154 ms QRS Dur : 088 ms QT Int : 368 ms P-R-T Axes : 075 081 056 degrees QTc Int : 382 ms NORMAL SINUS RHYTHM WITH SINUS ARRHYTHMIA POSSIBLE LEFT ATRIAL ENLARGEMENT BORDERLINE ECG NO PREVIOUS ECGS AVAILABLE Confirmed by MD VERNA, KENDALL ([id number]) on 10/10/2019 8:41:19 AM Referred By: MAGALI Confirmed By:KENDALL GILLESPIE MD
--- NOTE | 2019-10-10 08:54 | CONSULT ---
Jose Psychiatric Consult - Data Date of interview: 10/10/19 Psychiatric History: Patient was approached at bedside. 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
[2019-10-10] MEDS ORDERED: METHADONE HCL 10 MG TABLET (FOR DETOX USE ONLY) ONE (08:56)
[2019-10-10] MEDS ORDERED: METHADONE HCL 5 MG TABLET (FOR DETOX USE ONLY) ONE (08:56)
[2019-10-10] MEDS ORDERED: METHADONE (DETOX) 20 MG, METHADONE (DETOX) 5 MG PO ONE (10:00)
[2019-10-10] MEDS: PRENATAL VITAMINS W/ FOLIC ACID TABLET (FP) PO SCH (10:15)
[2019-10-10] MEDS: NICOTINE 14 MG/24 HOURS TOPICAL PATCH TD SCH (10:17)
[2019-10-10 10:38] LABS: HEMATOCRIT 39.4 % (35.4-49); HEMOGLOBIN 13.1 GM/dL (11.7-16.9); MCH 29.2 pg (25.7-33.7); MCHC 33.1 g/dl (32.0-35.9); MEAN CELL VOLUME 88.2 fl (80-96); MEAN PLT VOLUME 9.3 fl (7.5-11.1); PLATELET COUNT 231 K/MM3 (134-434); RBC 4.47 M/mm3 (4.00-5.60); RDW 14.4 % (11.9-15.9); WHITE BLOOD COUNT 7.3 K/mm3 (4.0-10.0)
[2019-10-10 10:57] LABS: ALBUMIN 3.3 g/dl (3.4-5.0); BILIRUBIN,TOTAL 0.5 mg/dL (0.2-1); BLOOD UREA NITROGEN 16.5 mg/dL (7-18); CALCIUM 8.6 mg/dL (8.5-10.1); CREATININE 0.9 mg/dL (0.55-1.3); POTASSIUM 3.9 mmol/L (3.5-5.1); TOT PROT 6.6 g/dl (6.4-8.2)
--- NOTE | 2019-10-10 11:33 | PN ---
[facility] CIWA - CIWA Score Nausea/Vomitin-No Nausea/No Vomiting Muscle Tremors: 3 Anxiety: 3 Agitation: 3 Paroxysmal Sweats: 3 Orientation: 0-Oriented Tacttile Disturbances: 0-None Auditory Disturbances: 0-None Visual Disturbances: 0-None Headache: 1-Very Mild CIWA-Ar Total Score: 13 BHS COWS - Scale Resting Pulse: 0= [place] 80 or Below Sweatin= Chills/Flushing Restless Observation: 1= Difficult to Sit Still Pupil Size: 0= Normal to Room Light Bone or Joint Aches: 2= Severe Diffuse Aches Runny Nose/ Eye Tearin= Nasal Congestion GI Upset > 30mins: 0= None Tremor Observation of Outstretched Hands: 2= Slight Tremor Visible Yawning Observation: 2= >3x During Session Anxiety or Irritability: 2=Irritable/Anxious Goose Flesh Skin: 0=Smooth Skin COWS Score: 11 S Progress Note (SOAP) Subjective: sweats shakes interrupted sleep body aches irritable agitation Objective: 10/10/19 11:28 Vital Signs Temperature 97.3 F L 10/10/19 09:17 Pulse Rate 66 10/10/19 09:17 Respiratory Rate 16 10/10/19 09:17 Blood Pressure 106/60 10/10/19 09:17 O2 Sat by Pulse Oximetry (%) Laboratory Tests 10/10/19 10/10/19 10/10/19 06:34 07:30 07:30 WBC 7.3 RBC 4.47 Hgb 13.1 Hct 39.4 MCV 88.2 MCH 29.2 MCHC 33.1 RDW 14.4 Plt Count 231 MPV 9.3 Sodium 137 Potassium 3.9 Chloride 105 Carbon Dioxide 24 Anion Gap 8 BUN 16.5 Creatinine 0.9 Est GFR (CKD-EPI)AfAm 113.41 Est GFR (CKD-EPI)NonAf 97.85 POC Glucometer 187 Random Glucose 280 H Calcium 8.6 Total Bilirubin 0.5 AST 11 L ALT 21 Alkaline Phosphatase 83 Total Protein 6.6 Albumin 3.3 L aaox3 ambulating no acute distress Assessment: 10/10/19 11:33 withdrawals Plan: continue detox increase fluids
[2019-10-10] MEDS ORDERED: hydrOXYzine PAMOATE 25 MG CAPSULE (FP) PO PRN (15:02)
[2019-10-10] MEDS: MELATONIN 5 MG TABLETS PO SCH (22:25)
[2019-10-10] MEDS: THIAMINE HCL 100 MG TABLET (FP) PO SCH (22:25)
--- NOTE | 2019-10-11 07:24 | PN ---
[facility] Progress Note Note: Vital Signs Temperature 97.3 F L 10/10/19 20:35 Pulse Rate 59 L 10/10/19 20:35 Respiratory Rate 18 10/11/19 03:32 Blood Pressure 131/78 10/10/19 20:35 O2 Sat by Pulse Oximetry (%) Laboratory Tests 10/10/19 10/10/19 10/10/19 06:34 07:30 07:30 WBC 7.3 RBC 4.47 Hgb 13.1 Hct 39.4 MCV 88.2 MCH 29.2 MCHC 33.1 RDW 14.4 Plt Count 231 MPV 9.3 Sodium 137 Potassium 3.9 Chloride 105 Carbon Dioxide 24 Anion Gap 8 BUN 16.5 Creatinine 0.9 Est GFR (CKD-EPI)AfAm 113.41 Est GFR (CKD-EPI)NonAf 97.85 POC Glucometer 187 Random Glucose 280 H Calcium 8.6 Total Bilirubin 0.5 AST 11 L ALT 21 Alkaline Phosphatase 83 Total Protein 6.6 Albumin 3.3 L RPR Titer 10/10/19 10/10/19 10/11/19 07:30 16:33 06:45 WBC RBC Hgb Hct MCV MCH MCHC RDW Plt Count MPV Sodium Potassium Chloride Carbon Dioxide Anion Gap BUN Creatinine Est GFR (CKD-EPI)AfAm Est GFR (CKD-EPI)NonAf POC Glucometer 275 331 Random Glucose Calcium Total Bilirubin AST ALT Alkaline Phosphatase Total Protein Albumin RPR Titer Nonreactive SPOKE WITH CLIENT ABOUT ELEVATED BGM. CLIENT REPORTS DX OF DM. HE ALSO REPORTS THAT HE IS ON METFORMIN 500MG BID. HE IS NOT COMPLIANT WITH TAKING HIS MEDS. REPORTS HE LAST TOOK IT ABOUT 1 MONTH AGO. HE ALSO DOES NOT FOLLOW UP WITH HIS PCP FOR MGMT. GIVEN INCREASING BGM WILL RESTART CLIENT ON HIS METFORMIN. ALSO NOTED SAME MGMT ON PREVIOUS ADMISSIONS HERE. CLIENT HAS AGREED TO THE ABOVE PLAN. P- BGM BID AC START METFORMIN 500MG PO BIDWM CONTINUE TO MONITOR CLINICALLY
[2019-10-11] MEDS: chlordiazePOXIDE HCL 25 MG CAPSULE PO SCH ×4 (07:34→22:27)
[2019-10-11] MEDS: metFORMIN HCL 500 MG TABLET (FP) PO SCH ×2 (08:01→17:03)
[2019-10-11] MEDS ORDERED: ONDANSETRON *ODT* 4 MG TABLET SL PRN (09:42)
[2019-10-11] MEDS ORDERED: METHADONE HCL 10 MG TABLET (FOR DETOX USE ONLY) PO ONE (10:00)
--- NOTE | 2019-10-11 10:01 | PN ---
[facility] CIWA - CIWA Score Nausea/Vomitin-No Nausea/No Vomiting Muscle Tremors: 2 Anxiety: 2 Agitation: 2 Paroxysmal Sweats: 2 Orientation: 0-Oriented Tacttile Disturbances: 0-None Auditory Disturbances: 0-None Visual Disturbances: 0-None Headache: 0-None Present CIWA-Ar Total Score: 8 BHS COWS - Scale Resting Pulse: 0= IN 80 or Below Sweatin= Chills/Flushing Restless Observation: 1= Difficult to Sit Still Pupil Size: 0= Normal to Room Light Bone or Joint Aches: 1= Mild Discomfort Runny Nose/ Eye Tearin= Nasal Congestion GI Upset > 30mins: 0= None Tremor Observation of Outstretched Hands: 1= Tremor [place], Not Seen Yawning Observation: 1= 1-2x During Session Anxiety or Irritability: 2=Irritable/Anxious Goose Flesh Skin: 0=Smooth Skin COWS Score: 8 BHS Progress Note (SOAP) Subjective: sweats nausea shakes interrupted sleep body aches Objective: 10/11/19 10:10 Vital Signs Temperature 97.9 F 10/11/19 05:25 Pulse Rate 55 L 10/11/19 05:25 Respiratory Rate 18 10/11/19 05:25 Blood Pressure 95/68 10/11/19 05:25 O2 Sat by Pulse Oximetry (%) Laboratory Tests 10/10/19 10/10/19 10/10/19 06:34 07:30 07:30 WBC 7.3 RBC 4.47 Hgb 13.1 Hct 39.4 MCV 88.2 MCH 29.2 MCHC 33.1 RDW 14.4 Plt Count 231 MPV 9.3 Sodium 137 Potassium 3.9 Chloride 105 Carbon Dioxide 24 Anion Gap 8 BUN 16.5 Creatinine 0.9 Est GFR (CKD-EPI)AfAm 113.41 Est GFR (CKD-EPI)NonAf 97.85 POC Glucometer 187 Random Glucose 280 H Calcium 8.6 Total Bilirubin 0.5 AST 11 L ALT 21 Alkaline Phosphatase 83 Total Protein 6.6 Albumin 3.3 L RPR Titer 10/10/19 10/10/19 10/11/19 07:30 16:33 06:45 WBC RBC Hgb Hct MCV MCH MCHC RDW Plt Count MPV Sodium Potassium Chloride Carbon Dioxide Anion Gap BUN Creatinine Est GFR (CKD-EPI)AfAm Est GFR (CKD-EPI)NonAf POC Glucometer 275 331 Random Glucose Calcium Total Bilirubin AST ALT Alkaline Phosphatase Total Protein Albumin RPR Titer Nonreactive aaox3 ambulating no acute distress Assessment: 10/11/19 10:11 withdrawals Plan: continue detox increase fluids zofran sl prn
[2019-10-11] MEDS: PRENATAL VITAMINS W/ FOLIC ACID TABLET (FP) PO SCH (10:32)
[2019-10-11] MEDS: NICOTINE 14 MG/24 HOURS TOPICAL PATCH TD SCH (10:32)
[2019-10-11] MEDS: MELATONIN 5 MG TABLETS PO SCH (22:27)
[2019-10-11] MEDS: THIAMINE HCL 100 MG TABLET (FP) PO SCH (22:27)
[2019-10-12] MEDS ORDERED: chlordiazePOXIDE HCL 10 MG CAPSULE PO PRN
[2019-10-12] MEDS: metFORMIN HCL 500 MG TABLET (FP) PO SCH ×2 (06:48→17:07)
[2019-10-12] MEDS: chlordiazePOXIDE HCL 10 MG CAPSULE PO SCH ×4 (06:49→22:10)
[2019-10-12] MEDS ORDERED: METHADONE HCL 5 MG TABLET (FOR DETOX USE ONLY) ONE (09:46)
[2019-10-12] MEDS ORDERED: METHADONE HCL 10 MG TABLET (FOR DETOX USE ONLY) ONE (09:46)
[2019-10-12] MEDS ORDERED: METHADONE (DETOX) 10 MG, METHADONE (DETOX) 5 MG PO ONE (10:00)
[2019-10-12] MEDS: PRENATAL VITAMINS W/ FOLIC ACID TABLET (FP) PO SCH (10:12)
[2019-10-12] MEDS: NICOTINE 14 MG/24 HOURS TOPICAL PATCH TD SCH (10:13)
--- NOTE | 2019-10-12 11:04 | PN ---
[facility] CIWA - CIWA Score Nausea/Vomitin-No Nausea/No Vomiting Muscle Tremors: 2 Anxiety: 2 Agitation: 2 Paroxysmal Sweats: 2 Orientation: 0-Oriented Tacttile Disturbances: 0-None Auditory Disturbances: 0-None Visual Disturbances: 0-None Headache: 0-None Present CIWA-Ar Total Score: 8 BHS COWS - Scale Resting Pulse: 0= [place] 80 or Below Sweatin= Chills/Flushing Restless Observation: 1= Difficult to Sit Still Pupil Size: 0= Normal to Room Light Bone or Joint Aches: 1= Mild Discomfort Runny Nose/ Eye Tearin= Nasal Congestion GI Upset > 30mins: 0= None Tremor Observation of Outstretched Hands: 1= Tremor [place], Not Seen Yawning Observation: 1= 1-2x During Session Anxiety or Irritability: 1=Feels Anxious/Irritable Goose Flesh Skin: 0=Smooth Skin COWS Score: 7 S Progress Note (SOAP) Subjective: sweats agitation Objective: 10/12/19 11:02 Vital Signs Temperature 98.4 F 10/11/19 20:55 Pulse Rate 80 10/11/19 20:55 Respiratory Rate 18 10/12/19 03:41 Blood Pressure 109/70 10/11/19 20:55 O2 Sat by Pulse Oximetry (%) Laboratory Tests 10/10/19 10/10/19 10/10/19 06:34 07:30 07:30 WBC 7.3 RBC 4.47 Hgb 13.1 Hct 39.4 MCV 88.2 MCH 29.2 MCHC 33.1 RDW 14.4 Plt Count 231 MPV 9.3 Sodium 137 Potassium 3.9 Chloride 105 Carbon Dioxide 24 Anion Gap 8 BUN 16.5 Creatinine 0.9 Est GFR (CKD-EPI)AfAm 113.41 Est GFR (CKD-EPI)NonAf 97.85 POC Glucometer 187 Random Glucose 280 H Calcium 8.6 Total Bilirubin 0.5 AST 11 L ALT 21 Alkaline Phosphatase 83 Total Protein 6.6 Albumin 3.3 L RPR Titer 10/10/19 10/10/19 10/11/19 07:30 16:33 06:45 WBC RBC Hgb Hct MCV MCH MCHC RDW Plt Count MPV Sodium Potassium Chloride Carbon Dioxide Anion Gap BUN Creatinine Est GFR (CKD-EPI)AfAm Est GFR (CKD-EPI)NonAf POC Glucometer 275 331 Random Glucose Calcium Total Bilirubin AST ALT Alkaline Phosphatase Total Protein Albumin RPR Titer Nonreactive 10/11/19 10/12/19 16:32 06:47 WBC RBC Hgb Hct MCV MCH MCHC RDW Plt Count MPV Sodium Potassium Chloride Carbon Dioxide Anion Gap BUN Creatinine Est GFR (CKD-EPI)AfAm Est GFR (CKD-EPI)NonAf POC Glucometer 383 231 Random Glucose Calcium Total Bilirubin AST ALT Alkaline Phosphatase Total Protein Albumin RPR Titer aaox3 ambulating no acute distress Assessment: 10/12/19 11:03 withdrawals Plan: continue detox increase fluids
[2019-10-12] MEDS ORDERED: INSULIN (NOVOLOG) ASPART 100 UNITS/ML 10ML VIAL SQ ONE (17:00)
[2019-10-12] MEDS ORDERED: INSULIN SLIDING SCALE (NOVOLOG) 1 VIAL SQ ONE (17:05)
[2019-10-12] MEDS: THIAMINE HCL 100 MG TABLET (FP) PO SCH (22:10)
[2019-10-12] MEDS: MELATONIN 5 MG TABLETS PO SCH (22:10)
[2019-10-13] MEDS: metFORMIN HCL 500 MG TABLET (FP) PO SCH ×2 (06:08→16:35)
[2019-10-13] MEDS: chlordiazePOXIDE HCL 10 MG CAPSULE PO SCH ×2 (06:08→16:35)
[2019-10-13] MEDS ORDERED: METHADONE HCL 10 MG TABLET (FOR DETOX USE ONLY) PO ONE (10:00)
[2019-10-13] MEDS: NICOTINE 14 MG/24 HOURS TOPICAL PATCH TD SCH (10:44)
[2019-10-13] MEDS: PRENATAL VITAMINS W/ FOLIC ACID TABLET (FP) PO SCH (10:44)
--- NOTE | 2019-10-13 12:57 | PN ---
[facility] CIWA - CIWA Score Nausea/Vomitin-Mild Nausea/No Vomiting Muscle Tremors: 1-None Visible, but [place] Anxiety: 2 Agitation: 2 Paroxysmal Sweats: No Perspiration Orientation: 0-Oriented Tacttile Disturbances: 1-Very Mild Itch/Numbness Auditory Disturbances: 0-None Visual Disturbances: 0-None Headache: 1-Very Mild CIWA-Ar Total Score: 8 BHS COWS - Scale Resting Pulse: 0= [place] 80 or Below Sweatin= No chills or Flushing Restless Observation: 0= Sits Still Pupil Size: 1= Pupils >than Normal Bone or Joint Aches: 1= Mild Discomfort Runny Nose/ Eye Tearin= Nasal Congestion GI Upset > 30mins: 1= Stomach Cramp Tremor Observation of Outstretched Hands: 1= Tremor [place], Not Seen Yawning Observation: 1= 1-2x During Session Anxiety or Irritability: 2=Irritable/Anxious Goose Flesh Skin: 0=Smooth Skin COWS Score: 8 BHS Progress Note (SOAP) Subjective: alert,irritable,anxious,interrupted sleep,pain in the body Objective: 10/13/19 12:56 Vital Signs Temperature 97.3 F L 10/13/19 09:02 Pulse Rate 68 10/13/19 09:02 Respiratory Rate 18 10/13/19 09:02 Blood Pressure 102/62 10/13/19 09:02 O2 Sat by Pulse Oximetry (%) Assessment: 10/13/19 12:56 withdrawal symptom Plan: continue detox methadone and librium regimen,discharge in am
[2019-10-13] MEDS: THIAMINE HCL 100 MG TABLET (FP) PO SCH (23:58)
[2019-10-13] MEDS: MELATONIN 5 MG TABLETS PO SCH (23:58)
[2019-10-14] MEDS ORDERED: chlordiazePOXIDE HCL 10 MG CAPSULE PO ONE (05:00)
[2019-10-14] MEDS ORDERED: METHADONE HCL 5 MG TABLET (FOR DETOX USE ONLY) PO ONE (06:00)
[2019-10-14 06:22] VITALS: BP 105/73; PULSE 59; TEMP 96.6
[2019-10-14] MEDS: metFORMIN HCL 500 MG TABLET (FP) PO SCH (07:04)
== END 2019-10-14 07:09 | disposition home or self-care (01) | DRG 773 ==
LOC: YASAS 16:53 → Y6N 18:53 → Y3N 10-13 20:59
PROVIDERS: ADMIT Allergy & Immunology; ATTEND Allergy & Immunology
PROC: HZ2ZZZZ Detoxification Services for Substance Abuse Treatment (ICD-10-PCS; principal; 2019-10-09)
DX: F10.230 Alcohol dependence with withdrawal, uncomplicated (principal); F11.23 Opioid dependence with withdrawal; F17.210 Nicotine dependence, cigarettes, uncomplicated; F20.9 Schizophrenia, unspecified; F31.9 Bipolar disorder, unspecified; E11.9 Type 2 diabetes mellitus without complications; Z79.84 Long term (current) use of oral hypoglycemic drugs; B18.2 Chronic viral hepatitis C; K86.9 Disease of pancreas, unspecified; Z88.8 Allergy status to other drugs, medicaments and biological substances; Z91.013 Allergy to seafood
CPT/HCPCS: 36415; 80053; 82962; 85027; 86593; 93005; 93010; Q0162

== ENCOUNTER 2022-03-23 11:14 | Inpatient (IN) | payer OTHER ==
[2022-03-23 12:22] VITALS: BMI 19.6
[2022-03-23] MEDS ORDERED: LOPERAMIDE HCL 2 MG CAPSULE PO PRN (12:58)
[2022-03-23] MEDS ORDERED: ONDANSETRON *ODT* 4 MG TABLET SL PRN (12:58)
[2022-03-23] MEDS ORDERED: IBUPROFEN 600 MG TABLET (FP) PO PRN (12:58)
[2022-03-23] MEDS ORDERED: MAGNESIUM CITRATE 300 ML BOTTLE PO PRN (12:58)
[2022-03-23] MEDS ORDERED: NICOTINE 10 MG CARTRIDGE (INHALER) IH PRN (12:58)
[2022-03-23] MEDS ORDERED: BISMUTH SUBSALICYLATE 524 MG/30 ML PO PRN (12:58)
[2022-03-23] MEDS ORDERED: MAG HYDROX/AL HYDROX/SIMETH 30 ML UNIT-DOSE CUP PO PRN (12:58)
[2022-03-23] MEDS ORDERED: ACETAMINOPHEN 325 MG TABLET (FP) PO PRN ×2 (12:58)
[2022-03-23] MEDS ORDERED: BENZOCAINE/MENTHOL (CHLORASEPTIC ) LOZENGE MM PRN (12:58)
[2022-03-23] MEDS ORDERED: METHOCARBAMOL 500 MG TABLET PO PRN (12:58)
[2022-03-23] MEDS ORDERED: MAGNESIUM HYDROX 2400MG/30ML ORAL SUSPENSION 30 ML CUP PO PRN (12:58)
[2022-03-23] MEDS ORDERED: chlordiazePOXIDE HCL 25 MG CAPSULE PO PRN (12:58)
[2022-03-23] MEDS ORDERED: IBUPROFEN 400 MG TABLET (FP) PO PRN (12:58)
[2022-03-23] MEDS ORDERED: DICYCLOMINE HCL 10 MG CAPSULE PO PRN (12:58)
[2022-03-23] MEDS ORDERED: MINERAL OIL/PETROLAT/WATER TOPICAL CREAM 454 GM JAR TP PRN (13:01)
[2022-03-23] MEDS ORDERED: CLOTRIMAZOLE 1% CREAM TP SCH (14:15)
[2022-03-23] MEDS: PRENATAL VITAMINS W/ FOLIC ACID TABLET (FP) PO SCH (16:06)
[2022-03-23] MEDS: hydrOXYzine PAMOATE 25 MG CAPSULE (FP) PO SCH ×3 (16:07→23:03)
[2022-03-23 16:42] LABS: HEMATOCRIT 39.3 % (35.4-49); HEMOGLOBIN 13.3 GM/dL (11.7-16.9); MCH 29.5 pg (25.7-33.7); MCHC 33.7 g/dl (32.0-35.9); MEAN CELL VOLUME 87.3 fl (80-96); MEAN PLT VOLUME 8.7 fl (7.5-11.1); PLATELET COUNT 244 10^3/uL (134-434); RBC 4.51 M/mm3 (4.00-5.60); RDW 13.1 % (11.9-15.9); WHITE BLOOD COUNT 6.3 K/mm3 (4.0-10.0)
[2022-03-23 16:43] LABS: ALBUMIN 3.3 g/dl (3.4-5.0); BLOOD UREA NITROGEN 10.2 mg/dL (7-18)
[2022-03-23 16:46] LABS: CREATININE 0.6 mg/dL (0.55-1.3)
[2022-03-23 16:47] LABS: BILIRUBIN,TOTAL 0.7 mg/dL (0.2-1); TOT PROT 7.4 g/dl (6.4-8.2)
[2022-03-23] MEDS ORDERED: INSULIN (NOVOLOG) ASPART 100 UNITS/ML 10ML VIAL ONE (17:21)
[2022-03-23] MEDS: chlordiazePOXIDE HCL 25 MG CAPSULE PO SCH ×2 (19:31→23:03)
[2022-03-23] MEDS: INSULIN SLIDING SCALE (NOVOLOG) 1 VIAL SQ SCH ×2 (19:55→23:35)
[2022-03-23] MEDS: MELATONIN 5 MG TABLETS PO SCH (23:03)
[2022-03-23] MEDS: THIAMINE HCL 100 MG TABLET (FP) PO SCH (23:03)
[2022-03-23] MEDS: CLOTRIMAZOLE 1% CREAM TP SCH (23:04)
[2022-03-24] MEDS: chlordiazePOXIDE HCL 25 MG CAPSULE PO SCH ×2 (06:52→12:34)
[2022-03-24] MEDS: hydrOXYzine PAMOATE 25 MG CAPSULE (FP) PO SCH ×5 (06:53→22:52)
[2022-03-24] MEDS: INSULIN SLIDING SCALE (NOVOLOG) 1 VIAL SQ SCH ×4 (06:53→22:52)
[2022-03-24] MEDS ORDERED: methaDONE HCL 10 MG TABLET PO ONE (10:45)
[2022-03-24] MEDS ORDERED: methaDONE 80 MG, methaDONE 10 MG PO ONE (10:58)
[2022-03-24] MEDS: CLOTRIMAZOLE 1% CREAM TP SCH (11:34)
[2022-03-24] MEDS: PRENATAL VITAMINS W/ FOLIC ACID TABLET (FP) PO SCH (11:34)
[2022-03-24] MEDS: LISINOPRIL 5 MG TABLET PO SCH (11:35)
[2022-03-24] MEDS ORDERED: LORazepam 1 MG TABLET PO PRN (13:46)
[2022-03-24] MEDS: metFORMIN HCL 500 MG TABLET (FP) PO SCH (17:13)
[2022-03-24] MEDS: LORazepam 2 MG TABLET PO SCH ×2 (18:16→22:52)
[2022-03-24] MEDS: MELATONIN 5 MG TABLETS PO SCH (22:51)
[2022-03-24] MEDS: THIAMINE HCL 100 MG TABLET (FP) PO SCH (22:52)
[2022-03-24] MEDS ORDERED: INSULIN (NOVOLOG) ASPART 100 UNITS/ML 10ML VIAL ONE (23:15)
[2022-03-25] MEDS: CLOTRIMAZOLE 1% CREAM TP SCH ×2 (00:35→11:11)
[2022-03-25] MEDS ORDERED: chlordiazePOXIDE HCL 25 MG CAPSULE PO SCH (05:00)
[2022-03-25] MEDS ORDERED: methaDONE HCL 10 MG TABLET PO SCH (06:00)
[2022-03-25] MEDS: methaDONE 80 MG, methaDONE 10 MG PO SCH (07:00)
[2022-03-25] MEDS: LORazepam 2 MG TABLET PO SCH ×4 (07:03→23:03)
[2022-03-25] MEDS: hydrOXYzine PAMOATE 25 MG CAPSULE (FP) PO SCH ×4 (07:03→23:01)
[2022-03-25] MEDS: INSULIN SLIDING SCALE (NOVOLOG) 1 VIAL SQ SCH ×4 (07:06→23:00)
[2022-03-25] MEDS: metFORMIN HCL 500 MG TABLET (FP) PO SCH ×2 (07:06→17:10)
[2022-03-25] MEDS: PRENATAL VITAMINS W/ FOLIC ACID TABLET (FP) PO SCH (11:11)
[2022-03-25] MEDS ORDERED: INSULIN (NOVOLOG) ASPART 100 UNITS/ML 10ML VIAL ONE (11:59)
[2022-03-25] MEDS: LISINOPRIL 5 MG TABLET PO SCH (12:57)
[2022-03-25] MEDS: THIAMINE HCL 100 MG TABLET (FP) PO SCH (23:01)
[2022-03-25] MEDS: MELATONIN 5 MG TABLETS PO SCH (23:03)
[2022-03-26] MEDS ORDERED: chlordiazePOXIDE HCL 10 MG CAPSULE PO PRN
[2022-03-26] MEDS: CLOTRIMAZOLE 1% CREAM TP SCH ×2 (00:01→10:30)
[2022-03-26] MEDS ORDERED: chlordiazePOXIDE HCL 10 MG CAPSULE PO SCH (05:00)
[2022-03-26] MEDS: LORazepam 1 MG TABLET PO SCH ×2 (05:31→10:31)
[2022-03-26] MEDS: methaDONE 80 MG, methaDONE 10 MG PO SCH (05:32)
[2022-03-26] MEDS: hydrOXYzine PAMOATE 25 MG CAPSULE (FP) PO SCH ×4 (05:32→11:32)
[2022-03-26] MEDS: INSULIN SLIDING SCALE (NOVOLOG) 1 VIAL SQ SCH (06:36)
[2022-03-26] MEDS ORDERED: PATIENT'S OWN MEDICATION (NON-FORMULARY) (Dulaglutide [Trulicity] 0.75 MG/0.5 ML Pen.Injct SQ SCH (07:00)
[2022-03-26] MEDS: metFORMIN HCL 500 MG TABLET (FP) PO SCH (07:20)
[2022-03-26 09:28] VITALS: BP 112/74; PULSE 87; RESP 17; TEMP 96.8
[2022-03-26] MEDS ORDERED: LIRAGLUTIDE 0.6 MG/0.1 ML PEN.INJCTR SQ SCH (10:00)
[2022-03-26] MEDS ORDERED: INSULIN (NOVOLOG) ASPART 100 UNITS/ML 10ML VIAL ONE (10:27)
[2022-03-26] MEDS: PRENATAL VITAMINS W/ FOLIC ACID TABLET (FP) PO SCH (10:30)
[2022-03-26] MEDS: LISINOPRIL 5 MG TABLET PO SCH (10:31)
[2022-03-27] MEDS ORDERED: LORazepam 0.5 MG TABLET PO PRN
[2022-03-27] MEDS ORDERED: LORazepam 0.5 MG TABLET PO SCH (05:00)
[2022-03-27] MEDS ORDERED: chlordiazePOXIDE HCL 10 MG CAPSULE PO SCH (05:00)
[2022-03-28] MEDS ORDERED: LORazepam 0.5 MG TABLET PO ONE (05:00)
[2022-03-28] MEDS ORDERED: chlordiazePOXIDE HCL 10 MG CAPSULE PO ONE (05:00)
== END 2022-03-26 09:20 | disposition left against medical advice (07) | DRG 770 ==
LOC: YASAS 11:14 → Y6N 13:59
PROVIDERS: ADMIT Allergy & Immunology; ATTEND Surgery
PROC: HZ2ZZZZ Detoxification Services for Substance Abuse Treatment (ICD-10-PCS; principal; 2022-03-23)
DX: F10.230 Alcohol dependence with withdrawal, uncomplicated (principal); F13.230 Sedative, hypnotic or anxiolytic dependence with withdrawal, uncomplicated; F11.20 Opioid dependence, uncomplicated; F14.20 Cocaine dependence, uncomplicated; F17.210 Nicotine dependence, cigarettes, uncomplicated; F25.9 Schizoaffective disorder, unspecified; F19.282 Other psychoactive substance dependence with psychoactive substance-induced sleep disorder; F19.24 Other psychoactive substance dependence with psychoactive substance-induced mood disorder; E11.9 Type 2 diabetes mellitus without complications; Z20.822 Contact with and (suspected) exposure to COVID-19; Z79.899 Other long term (current) drug therapy; Z87.19 Personal history of other diseases of the digestive system; Z86.19 Personal history of other infectious and parasitic diseases; Z88.8 Allergy status to other drugs, medicaments and biological substances; Z91.013 Allergy to seafood
CPT/HCPCS: 36415; 80053; 82962; 85027; 86780; 87811; C9803-CS; U0003; U0005